=== PATIENT | female | born 1965 | race Caucasian/White ===

== ENCOUNTER 2016-10-12 16:46 | Emergency (ER) | payer BC ==
--- NOTE | 2016-10-12 17:11 | ER Document Report ---
ED Medical Screen (RME) - General Stated Complaint: FALL/RIGHT ANKLE PAIN Notes: Patient is a 51-year-old female who fell and twisted her right ankle today. able to ambulate but with pain, lateral swelling with numbness. I have greeted and performed a rapid initial assessment of this patient. A comprehensive ED assessment and evaluation of the patient, analysis of test results and completion of the medical decision making process will be conducted by additional ED providers. - Related Data Allergies/Adverse Reactions: No Known Allergies Allergy (Verified 09/02/12 13:47) Past Medical History Musculoskeltal Medical History: Reports Hx Arthritis - RA Past Surgical History: Reports: Hx Section - x1 - Immunizations Hx Diphtheria, Pertussis, Tetanus Vaccination: Yes Physical Exam - Vital signs Vitals: Temp Pulse Resp BP Pulse Ox 98.1 F 76 18 134/106 H 97 10/12/16 16:52 10/12/16 16:52 10/12/16 16:52 10/12/16 16:52 10/12/16 16:52 Course - Vital Signs Vital signs: Temp Pulse Resp BP Pulse Ox 98.1 F 76 18 134/106 H 97 10/12/16 16:52 10/12/16 16:52 10/12/16 16:52 10/12/16 16:52 10/12/16 16:52
[2016-10-12] MEDS ORDERED: OXYCODONE-ACETAMINOPHEN 5-325 MG TABLET PO ONE (17:12)
--- NOTE | 2016-10-12 18:54 | ER Document Report ---
ED Extremity Problem, Lower - General Chief Complaint: Ankle Pain Stated Complaint: FALL/RIGHT ANKLE PAIN Notes: The patient is a 51-year-old female who presents with right ankle pain after she tripped down some stairs, inverted her ankle and heard a pop. She is able to walk, but it is painful. She initially had some tingling in her big toe, but this has resolved. She denies current numbness, open wounds, ankle swelling , fevers, falls or any other injuries. TRAVEL OUTSIDE OF THE [place] IN LAST 30 DAYS: No - Related Data Allergies/Adverse Reactions: No Known Allergies Allergy (Verified 10/12/16 17:12) Past Medical History - General Information source: Patient - Social History Smoking Status: Current Every Day Smoker Chew tobacco use (# tins/day): No Frequency of alcohol use: None Drug Abuse: None Family History: Reviewed & Not Pertinent Patient has suicidal ideation: No Patient has homicidal ideation: No Renal/ Medical History: Denies: Hx Peritoneal Dialysis Musculoskeltal Medical History: Reports Hx Arthritis - RA Past Surgical History: Reports: Hx Section - x1 - Immunizations Hx Diphtheria, Pertussis, Tetanus Vaccination: Yes Hx Pneumococcal Vaccination: 08/19/11 Review of Systems - Review of Systems Notes: REVIEW OF SYSTEMS: CONSTITUTIONAL: -fevers, -chills EENT: -eye pain, -difficulty swallowing, -nasal congestion CARDIOVASCULAR:-chest pain, -syncope. RESPIRATORY: -cough, -SOB GASTROINTESTINAL: -abdominal pain, - nausea, -vomiting, -diarrhea GENITOURINARY: -dysuria, -hematuria MUSCULOSKELETAL: +right ankle pain, -back pain, -neck pain SKIN: -rash or skin lesions. HEMATOLOGIC: -easy bruising or bleeding. LYMPHATIC: -swollen, enlarged glands. NEUROLOGICAL: -altered mental status or loss of consciousness, -headache, - neurologic symptoms PSYCHIATRIC: -anxiety, -depression. ALL OTHER SYSTEMS REVIEWED AND NEGATIVE. Physical Exam - Vital signs Vitals: Temp Pulse Resp BP Pulse Ox 98.1 F 76 18 134/106 H 97 10/12/16 16:52 10/12/16 16:52 10/12/16 16:52 10/12/16 16:52 10/12/16 16:52 - Notes Notes: PHYSICAL EXAMINATION: GENERAL: Well-appearing, well-nourished and in no acute distress. HEAD: Atraumatic, normocephalic. EYES: Pupils equal round and reactive to light, extraocular movements intact, sclera anicteric, conjunctiva are normal. ENT: nares patent, oropharynx clear without exudates. Moist mucous membranes. NECK: Normal range of motion, supple without lymphadenopathy LUNGS: Breath sounds clear to auscultation bilaterally and equal. No wheezes rales or rhonchi. HEART: Regular rate and rhythm without murmurs ABDOMEN: Soft, nontender, normoactive bowel sounds. No guarding, no rebound. No masses appreciated. EXTREMITIES: Mild right ankle swelling. Strong distal pulses. Non-tender and Normal range of motion, no pitting or edema. No cyanosis. NEUROLOGICAL: Cranial nerves grossly intact. Normal speech, normal gait. Normal sensory, motor, and reflex exams. PSYCH: Normal mood, normal affect. SKIN: Warm, Dry, normal turgor, no rashes or lesions noted. Course - Re-evaluation Re-evalutation: Patient has no vascular injury. X-rays do not show any fractures. Will place Zackary wrap and instructed pt about RICE w/ Ortho f/u as needed. - Vital Signs Vital signs: Temp Pulse Resp BP Pulse Ox 98.1 F 76 18 134/106 H 97 10/12/16 16:52 10/12/16 16:52 10/12/16 16:52 10/12/16 16:52 10/12/16 16:52 - Diagnostic Test Radiology reviewed: Image reviewed, Reports reviewed Radiology results interpreted by me: Foot and ankle x-rays: NAD Discharge - Discharge Clinical Impression: Right ankle sprain Qualifiers: Encounter type: initial encounter Involved ligament of ankle: unspecified ligament Qualified Code(s): S93.401A - Sprain of unspecified ligament of right ankle, initial encounter Condition: Good Disposition: HOME, SELF-CARE Additional Instructions: SPRAIN: Your injury is a sprain. A sprain results from stretching or tearing of the ligaments, usually from a twisting injury. The ligaments will require time and protection in order to heal properly. Many sprains are quite disabling and should be taken seriously. The usual initial treatment of sprains is cold packs, elevation, and rest of the injured area. Your physician has assessed the seriousness of your ligament injury, and has outlined a treatment plan. Understand that this treatment may change, depending on how you progress. If a re-examination was recommended, it is important that you follow up as instructed. Call the doctor any time if there is severe pain, numbness, or loss of function in the injured area. ZACKARY WRAP: A compression dressing (zackary wrap) has been placed. This helps hold the area still. It limits swelling and internal bleeding. The wrap should be comfortably snug -- not tight. You should feel a sense of pressure, but not severe pain under the wrap. Unless the physician tells you otherwise, you can adjust the wrap for comfort. If the wrap causes symptoms suggesting it's too tight -- uncomfortable pressure, swelling or discoloration beyond the wrap, numbness, or severe pain - - you must loosen the wrap. If these symptoms don't resolve promptly, return for re-evaluation. SPRAINED ANKLE: Your sprained ankle results from stretching or tearing of the ligaments which support the ankle. This usually results from twisting the foot inward and under. The ligaments will require time and protection in order to heal properly. Many ankle sprains are quite disabling, and should be taken seriously. The usual treatment for an ankle sprain is cold packs; protection with tape , splints, or wraps; elevation; and staying off the ankle for at least a day. As the ankle improves, you can walk IF it's not painful to bear weight. Sports are best postponed until healing is complete. More serious sprains usually require strengthening exercises after early healing. Your physician has assessed the seriousness of the ligament injury to your ankle. However, the treatment may change, depending on how your ankle progresses. If further exams were recommended, it is important that you follow through. Call the doctor if your foot becomes numb, painful, or severely swollen. SOFT ANKLE SPLINT: You are to wear a cloth ankle splint. This type of splint uses the strength of the fabric to keep the ankle from twisting. The splint can be worn over a sock, if it's more comfortable. If the splint has an adjustable strap, the strap should come up over the OUTER side of the ankle. This strap should be pulled tight enough so you can't turn your ankle in towards you -- it should hold your foot so the sole can't be turned towards at the other foot. You should start out slow. Like a new shoe, the splint may take some "breaking in." You will get blisters if you are too active at first. No ankle brace provides absolute protection. You must avoid activities which put your ankle at risk. Work on strengthening your ankle -- strength is your best protection against re-injury. Call the doctor if you can't do your normal activities in the ankle brace. ICE & ELEVATION: Apply ice packs frequently against the painful area. Many different schedules are recommended, such as "20 minutes on, 20 minutes off" or "one hour ice, two hours rest." If you need to work, you may need to go longer between ice treatments. You should plan to have the area ice packed AT LEAST one- fourth of the time. The ice should be applied over the wrap, tape, or splint, or over a layer of cloth -- not directly against the skin. Some ice bags have a built-in cloth and can be put directly on the skin. Your injured part should be elevated as much as possible over the next 48 hours. Try to keep the injury above the level of the heart. Avoid use of the injured area. Elevation and rest will decrease the swelling. USE OF [id number] IBUPROFEN: Ibuprofen (Advil, Nuprin, Medipren, Motrin IB) is a medication for fever and pain control. In addition, it has anti- inflammatory effects which may be beneficial, especially in the treatment of injuries. It's best to take ibuprofen with food. Persons with ulcer disease or allergy to aspirin should notify their physician of this before taking ibuprofen. Ibuprofen can be given every four to six hours, for a total of four doses daily. Age Pain or fever dose Antiinflammatory dose 6-8 yr 200 mg (1 tab) 200 mg (1 tab) 9-11 yr 200 mg (1 tab) 200-400 mg (1-2 tab) 11-14 yr 200-400 mg (1-2 tab) 400 mg (2 tab) 15-adult 400 mg (2 tab) 600 mg (3 tab) FOLLOW-UP CARE: If you have been referred to a physician for follow-up care, call the physician s office for an appointment as you were instructed or within the next two days. If you experience worsening or a significant change in your symptoms, notify the physician immediately or return to the Emergency Department at any time for re-evaluation. Forms: Return to Work Referrals: LELIA RUIZ, [ACTIVE STAFF] - Follow up as needed
[2016-10-12 19:31] VITALS: BP 135/80
== END 2016-10-12 19:29 | disposition home or self-care (01) ==
LOC: ER 16:46
DX: S93.401A Sprain of unspecified ligament of right ankle, initial encounter (principal); W10.9XXA Fall (on) (from) unspecified stairs and steps, initial encounter; Y93.89 Activity, other specified; F17.200 Nicotine dependence, unspecified, uncomplicated
CPT/HCPCS: 99283

== ENCOUNTER 2018-01-08 07:58 | Day surgery (SDC) | payer BC, OTHER ==
[2017-12-20 10:23] LABS: HEMATOCRIT 47.8 % (36.0-47.0); HEMOGLOBIN 16.3 g/dL (12.0-15.5); MEAN CORPUSCULAR HEMOGLOBIN 30.4 pg (27.0-33.4); MEAN CORPUSCULAR HGB CONC 34.2 g/dL (32.0-36.0); MEAN CORPUSCULAR VOLUME 89 fl (80-97); PLATELET COUNT 165 10^3/uL (150-450); RED BLOOD COUNT 5.37 10^6/uL (3.72-5.28); WHITE BLOOD COUNT 12.3 10^3/uL (4.0-10.5)
[2017-12-20 10:41] LABS: ALANINE AMINOTRANSFERASE 50 U/L (9-52); ALBUMIN 4.2 g/dL (3.5-5.0); ALKALINE PHOSPHATASE 86 U/L (38-126); AMYLASE 96 U/L (30-110); ANION GAP 13 (5-19); ASPARTATE AMINO TRANSFERASE 39 U/L (14-36); BILIRUBIN,DIRECT 0.4 mg/dL (0.0-0.4); BILIRUBIN,TOTAL 0.4 mg/dL (0.2-1.3); BLOOD UREA NITROGEN 13 mg/dL (7-20); CALCIUM 9.7 mg/dL (8.4-10.2); CARBON DIOXIDE 27 mmol/L (22-30); CHLORIDE 105 mmol/L (98-107); GLUCOSE 116 mg/dL (75-110); POTASSIUM 5.1 mmol/L (3.6-5.0); SODIUM 145.3 mmol/L (137-145); TOTAL PROTEIN 7.4 g/dL (6.3-8.2)
--- NOTE | 2017-12-20 21:13 | EKG REPORT ---
SEVERITY:- ABNORMAL ECG - SINUS RHYTHM CONSIDER ANTEROSEPTAL INFARCT : Confirmed by: Carla May 20-Dec-2017 21:13:15
[~2018-01-08 07:58] MED LIST: ACETAMINOPHEN 325 MG TABLET PO PRN; BUPIVACAINE HCL 0.25 % INJ/PF (2.5 MG/1 ML) 30 ML VIAL ONE; CEFAZOLIN 1 GM/D5W RTU 1 GM/50 ML RTUPB IV PRN; LACTATED RINGERS 1000 ML IV PRN; LIDOCAINE 0.5% INJ-PF (5 MG/ML) 50 ML SDV SUBCUT PRN
[2018-01-08] MEDS ORDERED: ROCURONIUM BROMIDE INJ 50 MG/5 ML VIAL IV ONE (08:47)
[2018-01-08] MEDS ORDERED: LIDOCAINE 2% INJ-PF (20 MG/ML) 2 ML AMPUL ONE (08:47)
[2018-01-08] MEDS ORDERED: DEXAMETHASONE SOD PHOSPHATE INJ 4 MG/1 ML VIAL ONE (08:47)
[2018-01-08] MEDS ORDERED: KETOROLAC TROMETHAMINE 60 MG/2 ML SDV ONE (08:47)
[2018-01-08] MEDS ORDERED: ONDANSETRON HCL INJ/PF 4 MG/2 ML SDV ONE (08:47)
[2018-01-08] MEDS ORDERED: SUCCINYLCHOLINE CHLORIDE INJ 200 MG/10 ML VIAL ONE (08:47)
[2018-01-08 08:58] LABS: ANION GAP 13 (5-19); BLOOD UREA NITROGEN 16 mg/dL (7-20); CALCIUM 9.6 mg/dL (8.4-10.2); CARBON DIOXIDE 27 mmol/L (22-30); CHLORIDE 107 mmol/L (98-107); GLUCOSE 102 mg/dL (75-110); POTASSIUM 4.5 mmol/L (3.6-5.0); SODIUM 146.6 mmol/L (137-145)
[2018-01-08 09:10] LABS: INTERNATIONAL RATION (INR) 0.94; PROTHROMBIN TIME 13.1 SEC (11.4-15.4)
[2018-01-08 09:11] LABS: PARTIAL THROMBOPLASTIN TIME 28.7 SEC (23.5-35.8)
[2018-01-08] MEDS ORDERED: ACETAMINOPHEN 100 ML IV ONE (10:14)
[2018-01-08] MEDS ORDERED: FENTANYL CITRATE INJ/PF 100 MCG/2 ML AMPUL ONE (10:14)
[2018-01-08] MEDS ORDERED: PROPOFOL INJ 200 MG/20 ML VIAL IV ONE (10:14)
[2018-01-08] MEDS ORDERED: HYDROMORPHONE HCL INJ/PF 2 MG/ML AMPULE ONE (10:14)
[2018-01-08] MEDS ORDERED: MIDAZOLAM 2 MG/2 ML INJ ONE (10:14)
[2018-01-08] MEDS ORDERED: PROMETHAZINE HCL INJ 25 MG/1 ML VIAL IV PRN ×2 (11:16)
[2018-01-08] MEDS ORDERED: OXYCODONE-ACETAMINOPHEN 5-325 MG TABLET PO PRN ×2 (11:16)
[2018-01-08] MEDS ORDERED: MEPERIDINE HCL/PF INJ 25 MG/1 ML DISP.SYRIN IV PRN (11:16)
[2018-01-08] MEDS ORDERED: DIPHENHYDRAMINE HCL 50 MG/ML VIAL IV PRN (11:16)
[2018-01-08] MEDS ORDERED: FENTANYL CITRATE INJ/PF 100 MCG/2 ML AMPUL IV PRN ×3 (11:16)
--- NOTE | 2018-01-08 12:24 | Operative Report ---
Operative Report DATE OF SURGERY: 01/08/18 PREOPERATIVE DIAGNOSIS: Symptomatic cholelithiasis with cholecystitis POSTOPERATIVE DIAGNOSIS: Same chronic hepatitis and cirrhosis OPERATION: Laparoscopic cholecystectomy SURGEON: CHE NUÑEZ SKILLS AUDITOR: GENNA JONES ANESTHESIA: GA TISSUE REMOVED OR ALTERED: 1 gallbladder with contents COMPLICATIONS: None ESTIMATED BLOOD LOSS: 25 cc INTRAOPERATIVE FINDINGS: See below PROCEDURE: After obtaining informed consent, the patient was taken to the operating room. General Anesthesia was induced; the arms were extended, and the abdomen was exposed, and prepped and draped in a sterile fashion. Instrumentation was set up for laparoscopic cholecystectomy. Surgical plan and surgical timeout were conducted. A vertical incision was made above the umbilicus, and a verres needle was inserted uneventfully into the peritoneal cavity. Pneumoperitoneum was established. The verres needle was removed and a 5 mm trocar was inserted and a 5 mm flexible laparoscope was inserted. Visualization of the peritoneal cavity confirmed safe uneventful entry. Under direct visualization 3 additional 5 mm ports were established, one in the subxiphoid position and second in the subcostal position. The gallbladder was distended and aspirated with laparoscopic trocar approximately 80 cc of bile Findings were significant for micro and macronodular cirrhosis consistent with chronic hepatitis. Photos were taken. No biopsies were taken. Of note there was no evidence of bleeding upon entry into the peritoneal cavity. Visualization of the hepatobiliary anatomy revealed no anatomic variations. Due to the noncompliant nature of the liver to easily reflect the gallbladder over the edge of the liver. Therefore the gallbladder was taken down from the graspers were repositioned accordingly plane of dissection established, and using local resection of the gallbladder was removed from the liver bed in an elegant, well-visualized fashion. We did enter the dominant cystic artery, and eventually controlled with the 2 clips proximally one distally and the cystic artery was divided and cystic duct. Photos were taken. We got around the cystic duct clearly, and now clipped the cystic duct twice proximally once distally divided. Again photos were taken. The gallbladder was now freed up, and removed from the peritoneal cavity uneventfully.Graspers were repositioned and the gallbladder was removed uneventfully from the abdominal cavity through the super umbilical port site incision. The specimen was examined, then passed off to pathology for permanent analysis. We returned to the peritoneal cavity check for bleeding, and evidence of bile leak, and there was none. Photographs were taken. We Confirmed satisfactory placement of clips on cystic duct and cystic artery were secured . At this point we felt the operation was complete. The subcutaneous tissue was then anesthetized with quarter percent Marcaine Sponge and needle counts are correct. All ports removed under direct visualization pneumoperitoneum evacuated, and 5 mm port wounds closed with 3-0 Vicryl suture, benzoin and Steri -Strips. The patient was extubated, and taken to the recovery room in stable condition. The physician ambulance assistant, Ms. Covarrubias, provided assistance during this case by: Assisting and port insertion, retracting tissue, instillation of local anesthesia and closure of skin incisions.
--- NOTE | 2018-01-08 12:29 | Discharge Summary ---
Discharge Summary (SDC) - Discharge Final Diagnosis: cholecystitis Date of Surgery: 01/08/18 Discharge Date: 01/08/18 Condition: Stable Treatment or Instructions: [facility] [address] [place] [id number] Discharge Instructions: Laparoscopic Surgery 1. General Information: a. DO NOT DRIVE a car or operate dangerous machinery for 3-4 days or while taking narcotic pain pills. b. DO NOT consume alcohol, tranquilizers, sleeping medications or any non- prescribed medications for 24 hours unless approved by your doctor or as long as taking narcotic prescription medications. c. DO NOT make important decisions or sign any important papers for the first 24 hours after surgery. d. When discharged home the same day of surgery have a responsible person with you for the first night. 2. Activity Restrictions: 2 weeks . a. NO heavy lifting, straining abdominal muscles, bending over a lot, yard work, house work, or sports for [address] for 3-4 days. c. It is fine to go for walks, up and down steps, ride in a car. d. Elevate your head when sleeping/resting. 3. Treatment: a. You may shower 24 hours after surgery, no baths or swimming for 2 weeks. Remove band-aids or dressings before shower but leave paper strips (steri-strips ) on the skin to fall off on their own. If still on at postoperative visit they will be removed then. b. Drainage of fluid or blood is not unusual from an incision. If occurs, you can clean with peroxide and cotton ball daily and cover with dry gauze until the wound seals. c. If a lot of bleeding occurs, you can hold pressure with a gauze or cloth over the site for 10 minutes and it will usually stop. If bleeding continues you will need to call for possible evaluation in office or emergency room. 4. Medications: a. ____Toradol__ may be taken for pain as needed, one tablet every 6 hours. b. You should resume all normal medications unless a change is specified by your doctors. 5. Diet: Begin with clear liquids and may progress to your normal diet if not nauseated. No high fat, high protein foods the day of surgery. 6. The following may occur after laparoscopic surgery: a. Shoulder or upper back ache from retained gas that should resolve in 1-2 days b. Soreness and bruising at incision sites will resolve with time. c. Scrotal swelling (labia in women) and bruising is often seen after hernia surgery. d. Sore throat e. Fatigue may last days to weeks. f. Difficulty urinating may occur and may need to come into emergency room for urinary catheter placement. 7. Notify Physician If: a. Worsening or pain not improved with pain medication b. Persistent nausea and vomiting c. Fever above 101 d. Persistent bleeding or swelling at operative site e. Unable to urinate and uncomfortable bladder 6-8 hours after surgery 8..Follow Up Care: a. Schedule a follow up appointment with your doctor for 2 weeks. In the event of any postoperative problems or questions or you may call the office during business hours or the On-Call physician evenings and weekends at [facility]. [facility] I understand the instructions for my postoperative care as described above and a copy has been given to me. Patient/Significant Other Witness Date Prescriptions: Ketorolac Tromethamine [Toradol 10 mg Tablet] 10 mg PO Q6HP PRN #20 tablet PRN Reason: Referrals: KELSEY GAYTAN MD [Primary Care Provider] - Discharge Diet: Other (Comments) - small bland meals. Avoid fatty/greasy foods. Discharge Activity: No Lifting Over 10 Pounds, Walk Frequently Report the Following to Your Physician Immediately: Nausea, Vomiting, Fever over 101 Degrees, Unusual Bleeding, Redness, Drainage-Foul Smelling
[2018-01-08 14:28] VITALS: BP 103/72
== END 2018-01-08 14:29 | disposition home or self-care (01) ==
LOC: OROUT 07:58
PROVIDERS: ATTEND Surgery
DX: K81.1 Chronic cholecystitis (principal); K76.0 Fatty (change of) liver, not elsewhere classified; K74.60 Unspecified cirrhosis of liver; J45.909 Unspecified asthma, uncomplicated; E16.2 Hypoglycemia, unspecified; B20 Human immunodeficiency virus [HIV] disease; M47.9 Spondylosis, unspecified; R01.1 Cardiac murmur, unspecified; Z79.51 Long term (current) use of inhaled steroids; Z88.5 Allergy status to narcotic agent; Z79.899 Other long term (current) drug therapy; I25.2 Old myocardial infarction
CPT/HCPCS: 93005; 36415 ×2; 82150; 85027; 85610; 85730; 81025; 80076; 80048 ×2; 88304 ×2; 93010; 47562; J2250; J0690; J3490 ×2; J1100; J1885; J3010; J1170; J0330; J2405; J2704; J0131; 790

== ENCOUNTER 2018-09-03 19:08 | Emergency (ER) | payer BC, OTHER ==
[2018-09-03 19:45] VITALS: BP 132/76
== END 2018-09-03 21:54 | disposition left against medical advice (07) ==
LOC: ER 19:08
DX: Z53.21 Procedure and treatment not carried out due to patient leaving prior to being seen by health care provider (principal)
CPT/HCPCS: 82962